=== PATIENT | male | born 2000 | race Caucasian/White ===

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

== ENCOUNTER 2021-08-19 12:07 | Emergency (ER) | payer MEDICAID ==
[~2021-08-19] VITALS: Ht 188 cm; Wt 70.3 kg
[2021-08-19 14:53] VITALS: BP 115/73
== END 2021-08-19 14:56 | disposition home or self-care (01) ==
LOC: ER 12:07
DX: S16.1XXA Strain of muscle, fascia and tendon at neck level, initial encounter (principal); S09.90XA Unspecified injury of head, initial encounter; X58.XXXA Exposure to other specified factors, initial encounter; Y93.89 Activity, other specified; Y92.89 Other specified places as the place of occurrence of the external cause; Y99.8 Other external cause status
CPT/HCPCS: 70450; 71045; 72125

== ENCOUNTER 2021-09-04 12:15 | Emergency (ER) | payer MEDICAID ==
[~2021-09-04] VITALS: Ht 188 cm; Wt 72.6 kg
[2021-09-04 14:11] VITALS: BP 117/73
[2021-09-04] MEDS ORDERED: AMOX-277 PO (16:29)
[2021-09-04] MEDS ORDERED: PRED20TA2 PO (16:29)
== END 2021-09-04 17:52 | disposition home or self-care (01) ==
LOC: ER 12:15
DX: J06.9 Acute upper respiratory infection, unspecified (principal); Z20.822 Contact with and (suspected) exposure to COVID-19
CPT/HCPCS: 36415; 71045; 87426

== ENCOUNTER 2022-03-28 14:10 | Emergency (ER) | payer MEDICAID ==
[~2022-03-28 14:10] MED LIST: AMOX-277 PO; PRED20TA2 PO
== END 2022-03-28 15:48 | disposition left against medical advice (07) ==
LOC: ER 14:10
DX: T14.8XXA Other injury of unspecified body region, initial encounter (principal); Z53.21 Procedure and treatment not carried out due to patient leaving prior to being seen by health care provider; W57.XXXA Bitten or stung by nonvenomous insect and other nonvenomous arthropods, initial encounter; Y93.89 Activity, other specified; Y92.89 Other specified places as the place of occurrence of the external cause; Y99.8 Other external cause status